=== PATIENT | female | born 1950 | race Caucasian/White ===

== ENCOUNTER → 2016-12-16 | Outpatient (CLI) | payer OTHER | LOC: FIMAGING 07:47 | PROVIDERS: ATTEND Family Medicine | DX: Z12.31 Encounter for screening mammogram for malignant neoplasm of breast (principal) | CPT/HCPCS: G0202 ==

== ENCOUNTER → 2017-01-24 | Outpatient (CLI) | payer OTHER | LOC: FLAB 15:40 | PROVIDERS: ATTEND Family Medicine | DX: Z01.818 Encounter for other preprocedural examination (principal); M25.569 Pain in unspecified knee; E03.9 Hypothyroidism, unspecified; M85.80 Other specified disorders of bone density and structure, unspecified site ==

== ENCOUNTER 2017-01-30 05:56 | Inpatient (IN) | payer OTHER ==
--- NOTE | 2017-01-29 13:05 | GHP ---
[f rep st] PREOP HISTORY AND PHYSICAL DATE OF ADMISSION: 01/30/2017 For surgery date 01/30/2017. HISTORY OF PRESENT ILLNESS: Patient is a 66-year-old female who presents with right knee tricompart ment osteoarthritis. Back in 2011 she had an arthroscopy for meniscal concerns and even at that poi nt was noted to have areas of grade 4 chondromalacia, especially patellofemoral joint. Subsequent i maging shows tricompartment osteoarthritis. She has had 3 rounds of viscosupplementation becoming l ess helpful each round. She has become significantly limited in her activity to walk, any significa nt distance or stand for any period of time. It impacts her activities of daily living, causes her to limp, limits her motion. She has knee pain. She cannot exercise for fitness due to her knee katy n. X-ray shows subchondral irregularity, bone lipping all 3 compartments, decreased joint space, es pecially patellofemoral compartment is involved. A right total knee arthroplasty is planned. PAST MEDICAL HISTORY: Is remarkable for hypothyroid. MEDICATIONS: Levothyroxine 75 mcg p.o. daily, and Lopreeza 0.5 mg p.o. daily. PAST SURGICAL HISTORY: Her surgeries include a right knee arthroscopy and appendectomy. ALLERGIES: She is sensitive to codeine causing nausea. SOCIAL HISTORY: She is a nonsmoker. REVIEW OF SYSTEMS: Positive for hypothyroid. PHYSICAL EXAM: GENERAL: Patient is a well-developed well-nourished female in no apparent distress. HEAD AND NECK: Normocephalic, atraumatic. CHEST: Clear. CARDIOVASCULAR: Regular rate and rhyt hm. ABDOMEN: Soft. NEUROLOGIC: She is alert and oriented x3. EXTREMITIES: Examination of the r ight knee shows a slight flexion contracture. She is bending past 120 degrees. She has a small eff usion. She has joint line tenderness. She has a stable ligamentous exam, and neurovascular exam is intact. IMPRESSION: Right knee tricompartment osteoarthritis. PLAN: Right total knee arthroplasty. Benefits and risks of surgery have been reviewed with the pat ient, she understands that the risks include infection, damage to blood vessel or nerve, failure or loosening of components and need for revision, blood clot in the leg or lungs, bleeding and need for transfusion. We have reviewed the rigorous nature of the rehabilitation. She has signed a consent form, wishes to proceed. /[id number]/MODL
[2017-01-30] MEDS ORDERED: ROPIVACAINE 0.2% 80 MG, EPINEPHrine 0.2 MG, KETOROLAC TROMETHAMINE 30 MG in BAG 0 ML IU ONE (06:03)
[2017-01-30] MEDS ORDERED: ceFAZolin 2 GM/DEXTROSE 100 ML IV ONE (06:03)
[2017-01-30] MEDS ORDERED: DEXAMETHASONE 4 MG/ML VIAL IVP ONE (06:03)
[2017-01-30] MEDS ORDERED: ACETAMINOPHEN 325 MG TAB PO ONE (06:03)
[2017-01-30] MEDS ORDERED: TRANEXAMIC ACID 770 MG in NS 100 ML IV ONE (06:03)
[2017-01-30] MEDS ORDERED: FAMOTIDINE 20 MG TAB PO ONE (06:03)
[2017-01-30] MEDS ORDERED: POVIDONE-IODINE 20 ML in SODIUM CL IRRIG SOLUTION 500 ML IRR ONE (06:03)
[2017-01-30] MEDS ORDERED: LIDOCAINE 1% 2 ML INJ ID PRN (06:19)
[2017-01-30] MEDS ORDERED: LR 1,000 ML IV ONE (06:19)
[2017-01-30] MEDS ORDERED: PROPOFOL 200 MG/20 ML VIAL ONE ×2 (06:33→08:21)
[2017-01-30] MEDS ORDERED: ROPIVACAINE HCL 150 MG/30 ML INJ ONE (06:35)
[2017-01-30] MEDS ORDERED: ceFAZolin 1 GM/5 ML SYR ONE ×2 (06:41→06:55)
[2017-01-30] MEDS ORDERED: MIDAZOLAM 2 MG/2 ML VIAL IVP ONE (07:03)
--- NOTE | 2017-01-30 07:03 | PDANEPAE ---
ANE History of Present Illness 66 year old female w/ PMHx of hypothyroidism and OA presents for right total knee arthroplasty. ANE Past Medical History - Cardiovascular History Hx Hypertension: No Hx Arrhythmias: No Hx Chest Pain: No Hx Coronary Artery / Peripheral Vascular Disease: No Hx CHF / Valvular Disease: No Hx Palpitations: No - Pulmonary History Hx COPD: No Hx Asthma/Reactive Airway Disease: No Hx Recent Upper Respiratory Infection: No Hx Oxygen in Use at Home: No Hx Sleep Apnea: No Sleep Apnea Screening Result - Last Documented: Negative - Neurologic History Hx Cerebrovascular Accident: No Hx Seizures: No Hx Dementia: No - Endocrine History Hx Diabetes: No Hypothyroid: Yes Hyperthyroid: No Obesity: no Endocrine History Comment: Hypothyroid-med. - Renal History Hx Renal Disorders: No - Liver History Hx Hepatic Disorders: No - Neurological & Psychiatric Hx Hx Neurological and Psychiatric Disorders: Yes Neurological / Psychiatric History Comment: Mild depression. - Cancer History Hx Cancer: No - Congenital Disorder History Hx Congenital Disorders: No - GI History Hx Gastrointestinal Disorders: Yes Gastrointestinal History Comment: Gerd-no meds. - Other Health History Other Health History: Mild ringing both ears. Diffuse joint arthritis. ABN post menopausal bleeding. - Chronic Pain History Chronic Pain: Yes (L hip.) - Surgical History Prior Surgeries: R knee scope. Api. D&C in past. ANE Review of Systems - Exercise capacity Exercise capacity: >=4 METS METS (RN): 4 METS ANE Patient History - Allergies Allergies/Adverse Reactions: codeine Allergy (Verified 12/20/16 16:43) Vomiting - Home Medications Home medications: home medication list seen and reviewed Home Medications: Cholecalciferol Vit D3 [Vitamin D3 (*)] 2,000 units PO DAILY 12/13/16 [Last Taken 1 Week Ago] Estradiol/Norethindrone Acet [Lopreeza 0.5 mg-0.1 mg Tablet] 1 each PO DAILY [Last Taken 01/26/17] Herbals/Supplements -Info Only 1 ea PO DAILY 12/13/16 [Last Taken 1 Week Ago] Levothyroxine [Synthroid 75 mcg (*)] 75 mcg PO DAILY06 12/13/16 [Last Taken 01/09 04:30] Multivitamins [Multivitamin (*)] 1 each PO DAILY 12/13/16 [Last Taken 1 Week Ago ] - NPO status NPO Status: no food or drink >8 hours NPO Since - Liquids (Date): 01/29/17 NPO Since - Liquids (Time): 22:00 NPO Since - Solids (Date): 01/29/17 NPO Since - Solids (Time): 21:00 - Anes Hx Anes Hx: post operative nausea (with general anesthesia) - Smoking Hx Smoking Status: Never smoked - Family Anes Hx Family Hx Anesthesia Complications: sister severe nausea. ANE Labs/Vital Signs - Vital Signs Blood Pressure: 147/98 Heart Rate: 84 Respiratory Rate: 20 O2 Sat (%): 93 Height: 170.18 cm Weight: 77.111 kg ANE Physical Exam - Airway Mallampati Score: Class 2 Mouth exam: normal dental/mouth exam - Pulmonary Pulmonary: no respiratory distress - Cardiovascular Cardiovascular: regular rate and rhythym - ASA Status ASA Status: II ANE Anesthesia Plan Anesthesia Plan: MAC, spinal Regional Anesthesia: single shot NB
[2017-01-30] MEDS ORDERED: DEXAMETHASONE 4 MG/ML VIAL ONE (08:08)
[2017-01-30] MEDS ORDERED: MEPERIDINE 25 MG/ML SYR IVP PRN (08:34)
[2017-01-30] MEDS ORDERED: NALOXONE HCL 0.4 MG/ML INJ IVP PRN (08:34)
[2017-01-30] MEDS ORDERED: fentaNYL 100 MCG/2 ML INJ IVP PRN (08:34)
[2017-01-30] MEDS ORDERED: ONDANSETRON 4 MG/2 ML VIAL IVP PRN ×2 (08:34→09:28)
[2017-01-30] MEDS ORDERED: HYDROCODONE/APAP 5/325 TAB PO PRN (08:34)
[2017-01-30] MEDS ORDERED: LR 500 ML IV PRN (08:34)
[2017-01-30] MEDS ORDERED: METOCLOPRAMIDE 10 MG/2 ML VIAL IVP PRN (09:28)
[2017-01-30] MEDS ORDERED: PROMETHAZINE HCL 25 MG/ML INJ IVP PRN (09:28)
[2017-01-30] MEDS ORDERED: TEMAZEPAM 15 MG CAP PO PRN (09:28)
[2017-01-30] MEDS ORDERED: BISACODYL 10 MG SUPP PR PRN (09:28)
[2017-01-30] MEDS ORDERED: LACTULOSE 20 GM/30 ML UDCUP PO PRN (09:28)
[2017-01-30] MEDS ORDERED: PROMETHAZINE HCL 25 MG SUPPR PR PRN (09:28)
[2017-01-30] MEDS ORDERED: DIPHENOXYLATE/ATROPINE LOMOTIL 1 TAB PO PRN (09:28)
[2017-01-30] MEDS ORDERED: PHARMACY PAIN CONSULT 1 EA MISC PRN (09:28)
[2017-01-30] MEDS ORDERED: POLYETHYLENE GLYCOL 3350 17 GM PKT PO PRN (09:28)
[2017-01-30] MEDS ORDERED: MAGNESIUM HYDROXIDE 30 ML UDCUP PO PRN (09:28)
[2017-01-30] MEDS ORDERED: KETOROLAC 30 MG/1 ML SDV IVP PRN (09:28)
[2017-01-30] MEDS ORDERED: diphenhydrAMINE 25 MG CAP PO PRN (09:28)
[2017-01-30] MEDS ORDERED: CYCLOBENZAPRINE 10 MG TAB PO PRN (09:28)
[2017-01-30] MEDS ORDERED: LR 1,000 ML IV SCH (09:30)
--- NOTE | 2017-01-30 10:58 | GOP ---
[f rep st] OPERATIVE REPORT DATE OF OPERATION: 01/30/2017 SURGEON: Aaron Reese MD GROUND CREW[employer] SUPPORT: Eliseo Alvarado SA. ANESTHESIOLOGIST: Malik Epstein MD. PREOPERATIVE DIAGNOSIS: Right knee osteoarthritis. POSTOPERATIVE DIAGNOSIS: Right knee osteoarthritis. PROCEDURE PERFORMED: Right total knee arthroplasty. FINDINGS: SPECIMENS: Include excised bone. ESTIMATED BLOOD LOSS: Minimal. INDICATIONS: The patient is a 66-year-old female who presents with right knee tricompartment osteoa rthritis. A right total knee arthroplasty is planned. DESCRIPTION OF PROCEDURE: The patient was taken to the operating room and in a seated position, Dr. Epstein provided a spinal anesthetic. She was then placed supine, received IV sedation, 2 g of IV A ncef. Tourniquet was placed high on the right thigh. I made sure the right leg was in neutral posi tion. She has a slight flexion contracture. The right leg was prepped and draped in the usual fas ion with chlorhexidine. The limb was elevated, exsanguinated, and the tourniquet inflated to 275 mm Hg. I made a longitudinal incision in the midline, dissected through subcutaneous tissue. I used a medial parapatellar arthrotomy. The patella was inverted and I removed osteophytes. I measured its thickness at 20 mm. I removed 9 mm of cartilage and bone, and sized the patella at a size 35. I d rilled peg holes. The trial component and the [place] patella restored the 20 mm of thickness and I removed rimming osteophytes. The knee was then flexed and I removed osteophytes from the edges of t he femoral condyles. This is a very arthritic knee. I drilled a charter pilot hole in the distal femur, pl aced an intramedullary device to make a distal 5 degree valgus cut. I used an extra 2 mm of resecti on to accommodate her slight flexion contracture. I sized the distal femur to a size 6. I backed d own to a size 5 and advanced the cutting block anteriorly. I made anterior, posterior and chamfer c uts, as well as notch cuts. The trial component was a very good fit. I then used an extramedullary device on the tibia. I dialed in the rotation, as well as posterior slope, used a stylus to measur e depth. I made a tibial cut, sized the tibial surface at a size 4. I adjusted the rotation, marked this and finished the tibial prep. All components were removed and I jet lavaged all the bone surf aces to clean them. I used methylmethacrylate on the tibia and the tibial component size 4 was lan ered into place, cement on the femur. Then, the femoral component size 5 and placed a trial liner, extended the knee. The patellar component was held with a clamp until the cement had hardened. I allyson sam did trial reductions. A size 9 liner allowed full extension, excellent roll back in flexion, ap propriate ligamentous stability. The 9 mm thick crosslink poly liner with a post was snapped into t tibial tray. I infiltrated around the knee with a joint cocktail of Toradol, Marcaine. The arth rotomy was closed with interrupted ildeas-nt-cbvss sutures of 0 Mersilene. Subcutaneous tissue was with 2-0 Monocryl. The skin was closed with yoli. The wound was dressed with Betadine-soaked Ad aptic, 4 x 4, sterile Webril, and a long-leg Fazal stocking. There were no complications. DRAINS: There were no drains. COUNTS: All counts were correct. DISPOSITION: The patient was taken in stable condition to recovery. My surgical specialist, Eliseo melendrez, was a medical necessity to accomplish this total knee replacement. SUMMARY OF COMPONENTS: This is a [employer] knee all components cemented. The femur is Oxinium. The poly is Crosslink. The femur is size 5, the tibia size 4, the patella 35 and the cr oss-linked poly liner 9 mm thick. /[id number]/MODL
--- NOTE | 2017-01-30 11:00 | POSTANESTH ---
Post Anesthetic Evaluation Cardiovascular Status: Normal, Stable Respiratory Status: Normal, Stable Level of Consciousness/Mental Status: Can Participate in Eval Pain Control: Adequate, Prn Tx Ordered Nausea/Vomiting Control: Adequate, Prn Tx Ordered Complications Possibly Related to Anesthesia: None Noted
[2017-01-30] MEDS: ACETAMINOPHEN 325 MG TAB PO SCH ×3 (12:11→22:31)
[2017-01-30] MEDS: ceFAZolin 2 GM/DEXTROSE 100 ML IV SCH ×2 (14:25→21:33)
[2017-01-30] MEDS: ASPIRIN 325 MG TAB PO SCH (21:16)
[2017-01-30] MEDS: FAMOTIDINE 20 MG TAB PO SCH (21:16)
[2017-01-30] MEDS: SENNOSIDES/DOCUSATE SODIUM TAB PO SCH (21:17)
[2017-01-30] MEDS: oxyCODONE IR 5 MG TAB PO PRN ×2 (21:17→22:29)
[2017-01-31 05:42] LABS: HEMATOCRIT 36.2 % (38.0-47.0); HEMOGLOBIN 12.1 g/dL (12.6-16.3)
[2017-01-31] MEDS: ACETAMINOPHEN 325 MG TAB PO SCH ×2 (05:59→12:08)
[2017-01-31] MEDS ORDERED: LEVOTHYROXINE 75 MCG TAB PO SCH (06:00)
[2017-01-31 08:03] VITALS: O2SAT 95
[2017-01-31] MEDS ORDERED: NORETHINDRONE PO SCH (09:00)
[2017-01-31] MEDS ORDERED: CHOLECALCIFEROL VIT D3 2,000 UNITS TAB/CAP PO SCH (09:00)
[2017-01-31] MEDS ORDERED: CHOLECALCIFEROL VIT D3 1,000 UNITS TAB PO SCH (09:00)
[2017-01-31] MEDS ORDERED: ESTRADIOL PO SCH (09:00)
[2017-01-31] MEDS ORDERED: MULTIVITAMINS 1 EACH TAB PO SCH (09:00)
[2017-01-31] MEDS: ASPIRIN 325 MG TAB PO SCH (09:05)
[2017-01-31] MEDS: FAMOTIDINE 20 MG TAB PO SCH (09:07)
[2017-01-31] MEDS: SENNOSIDES/DOCUSATE SODIUM TAB PO SCH (09:07)
--- NOTE | 2017-01-31 11:35 | SOAPPROG ---
SOAP Progress Note Assessment/Plan: Assessment: 01/31/17 POD#1 R TKA, pain controlled, Hct 36, xray fine Plan: 01/31/17 11:33 D/C home, asa oxy, home PT Objective: Vital Signs Temp Pulse Resp BP Pulse Ox 36.3 C 76 15 109/74 95 01/31/17 08:00 01/31/17 08:00 01/31/17 08:00 01/31/17 08:00 01/31/17 08:00 Laboratory Results 01/31/17 05:29 01/30/17 01/31/17 02/01/17 05:59 05:59 05:59 Intake Total 1999 Output Total 25 Balance 1975 ICD10 Worksheet Patient Problems: Problems Problem Status Onset Osteoarthritis of right knee Acute - ICD10 Problem Qualifiers (1) Osteoarthritis of right knee Qualifiers: Osteoarthritis type: O
--- NOTE | 2017-01-31 11:41 | PDIAF ---
- Diagnosis Code Status: Full Code - Medication Management Discharge Medications: Medications to Continue on Transfer Cholecalciferol Vit D3 [Vitamin D3 (*)] 2,000 units PO DAILY 12/13/16 [Last Taken 1 Week Ago] Estradiol/Norethindrone Acet [Lopreeza 0.5 mg-0.1 mg Tablet] 1 each PO DAILY [Last Taken 01/26/17] Herbals/Supplements -Info Only 1 ea PO DAILY 12/13/16 [Last Taken 1 Week Ago] Levothyroxine [Synthroid 75 mcg (*)] 75 mcg PO DAILY06 12/13/16 [Last Taken 01/09 04:30] Multivitamins [Multivitamin (*)] 1 each PO DAILY 12/13/16 [Last Taken 1 Week Ago ] Aspirin [Aspirin 325 mg (*)] 325 mg PO DAILY #0 tab 01/31/17 [Last Taken Unknown ] oxyCODONE IR [Oxycodone Ir (*)] 5 - 10 mg PO Q3HRS PRN #0 tab 01/31/17 [Last Taken Unknown] Discharge Medications: Refer to the Discharge Home Medication list for PRN reason. - Orders Services needed: Physical Therapy Diet Recommendation: no restrictions on diet Diet Texture: Regular Texture Diet Fazal Stockings Discontinue Date: 2 weeks Wound Care Instructions: keep incision covered, clean,dry Sutures/[place] Site: r knee, yoli out at my office 2 weeks Activity/Weight Bearing Restrictions: WBAT, full ROM - Follow Up Care Current Providers and Referrals: Yamilka De Jesus MD [Primary Care Provider] -
[2017-01-31 11:53] VITALS: BP 103/66; PULSE 70; RESP 18; TEMP 98.1
== END 2017-01-31 14:25 | disposition home health service (06) | DRG 470 ==
LOC: F3N 05:56
PROVIDERS: ADMIT Orthopaedic Surgery; ATTEND Orthopaedic Surgery
PROC: 0SRC0J9 Replacement of Right Knee Joint with Synthetic Substitute, Cemented, Open Approach (ICD-10-PCS; principal; 2017-01-30 07:15)
DX: M17.11 Unilateral primary osteoarthritis, right knee (principal); E03.9 Hypothyroidism, unspecified
CPT/HCPCS: 97110-GP; 97116-GP; 97161-GP; 97165-GO; 97530-GP; C1713; J0171; J0690; J1100; J1885; J2250; J2704; J2795

== ENCOUNTER → 2017-07-31 | Outpatient (CLI) | payer OTHER ==
[~2017-07-31] MED LIST: IOPAMIDOL (ISOVUE-300) 100 ML BTL ONE
== END ==
LOC: FIMAGING 15:32
PROVIDERS: ATTEND Physician Assistant Medical
DX: R30.0 Dysuria (principal); R31.0 Gross hematuria; K59.00 Constipation, unspecified; K57.30 Diverticulosis of large intestine without perforation or abscess without bleeding
CPT/HCPCS: Q9967

== ENCOUNTER 2018-01-08 10:57 | Inpatient (IN) | payer OTHER ==
--- NOTE | 2018-01-07 15:21 | GHP ---
[f rep st] PREOP HISTORY AND PHYSICAL DATE OF ADMISSION: 01/08/2018 HISTORY OF PRESENT ILLNESS: The patient is a 67-year-old female who presents with left hip pain. Sh el has limitation of her motion, especially rotation and she is having groin pain. Her hip pain influ ences range of motion, she has gait and she is limping. She has undergone a right total k nee successfully. X-rays of the left hip shows significant decreased joint space, degenerative lippi ng, and subchondral sclerosis. She has tried appropriate medications, as well as exercises and tried to maintain her motion and core strength, is having significant limitation of her activities, and th is impacts her quality of life, she elected to undergo a left total hip arthroplasty. PAST MEDICAL HISTORY: She is hypothyroid. She uses levothyroxine 75 mcg. She has had a right knee scope and a right total knee arthroplasty, and appendectomy because of nausea. SOCIAL HISTORY: She is a nonsmoker. REVIEW OF SYSTEMS: Positive for hypothyroid. Negative for cardiopulmonary disease. PHYSICAL EXAMINATION: GENERAL: She is a well-developed, well-nourished female in no apparent distre ss. HEAD AND NECK: Normocephalic, atraumatic. CHEST: Clear. CARDIOVASCULAR: Regular rate and rh ythm. ABDOMEN: Soft. NEUROLOGIC: She is alert and oriented x3. EXTREMITIES: Examination of the left hip shows significant limitation of internal and external rotation. She tolerates only 90 degre es of flexion, has near full extension, very limited abduction. IMPRESSION: Left hip osteoarthritis. PLAN: Left total hip arthroplasty. Benefits and risks of surgery have been reviewed, including risk of infection; damage to blood, vessel, and nerve; failure or loosening of components and need for re vision; blood clot in the leg or lungs; possible hip instability, such as dislocation or leg length d iscrepancy. She has signed a consent form and wishes to proceed. /[id number]/MODL
[~2018-01-08 10:57] MED LIST changes: -IOPAMIDOL (ISOVUE-300) 100 ML BTL ONE; +POVIDONE-IODINE 20 ML in SODIUM CL IRRIG SOLUTION 500 ML IRR ONE; +ROPIVACAINE 0.2% 80 MG, EPINEPHrine 0.2 MG, KETOROLAC TROMETHAMINE 30 MG in SYRINGE 0 ML IU ONE; +TRANEXAMIC ACID 1,000 MG in NS 100 ML IV ONE
[2018-01-08] MEDS ORDERED: ACETAMINOPHEN 325 MG TAB PO ONE (11:09)
[2018-01-08] MEDS ORDERED: ONDANSETRON 4 MG/2 ML VIAL IVP ONE (11:09)
[2018-01-08] MEDS ORDERED: LR 1,000 ML IV ONE (11:09)
[2018-01-08] MEDS ORDERED: DEXAMETHASONE 4 MG/ML VIAL IVP ONE (11:09)
[2018-01-08] MEDS ORDERED: ceFAZolin 2 GM/DEXTROSE 100 ML IV ONE (11:09)
[2018-01-08] MEDS ORDERED: FAMOTIDINE 20 MG TAB PO ONE (11:09)
[2018-01-08] MEDS ORDERED: LIDOCAINE 1% 2 ML INJ ID PRN (11:09)
[2018-01-08] MEDS ORDERED: GABAPENTIN 300 MG CAP PO ONE (11:09)
[2018-01-08] MEDS ORDERED: ceFAZolin 1 GM/5 ML SYR ONE ×2 (12:37→14:54)
--- NOTE | 2018-01-08 13:33 | PDANEPAE ---
ANE History of Present Illness let hip[ oa ANE Past Medical History - Cardiovascular History Hx Hypertension: No Hx Arrhythmias: No Hx Chest Pain: No Hx Coronary Artery / Peripheral Vascular Disease: No Hx CHF / Valvular Disease: No Hx Palpitations: No - Pulmonary History Hx COPD: No Hx Asthma/Reactive Airway Disease: No Hx Recent Upper Respiratory Infection: No Hx Oxygen in Use at Home: No Hx Sleep Apnea: No Sleep Apnea Screening Result - Last Documented: Negative - Neurologic History Hx Cerebrovascular Accident: No Hx Seizures: No Hx Dementia: No - Endocrine History Hx Diabetes: No Hypothyroid: Yes Hyperthyroid: No Endocrine History Comment: Hypothyroid-med. - Renal History Hx Renal Disorders: No - Liver History Hx Hepatic Disorders: No - Neurological & Psychiatric Hx Hx Neurological and Psychiatric Disorders: No Neurological / Psychiatric History Comment: Mild depression,no meds - Cancer History Hx Cancer: No - Congenital Disorder History Hx Congenital Disorders: No - GI History Hx Gastrointestinal Disorders: Yes Gastrointestinal History Comment: Gerd-no meds. - Other Health History Other Health History: Mild ringing both ears. Diffuse joint arthritis. ABN post menopausal bleeding. - Chronic Pain History Chronic Pain: No (lower back pain) - Surgical History Prior Surgeries: R knee scope. Api. D&C in past. R TKA ANE Review of Systems Review of systems is: negative Review of Systems: - Exercise capacity Exercise capacity: >=4 METS METS (RN): 4 METS ANE Patient History - Allergies Allergies/Adverse Reactions: codeine Allergy (Verified 12/25/17 15:57) Vomiting - Home Medications Home Medications: Cholecalciferol Vit D3 [Vitamin D3 (*)] 2,000 units PO DAILY 12/13/16 [Last Taken 1 Week Ago ~01/01/18] Herbals/Supplements -Info Only 1 ea PO DAILY 12/13/16 [Last Taken 1 Week Ago ~] Levothyroxine [Synthroid 75 mcg (*)] 75 mcg PO DAILY06 12/13/16 [Last Taken 1 Day Ago ~01/07/18] Multivitamins [Multivitamin (*)] 1 each PO DAILY 12/13/16 [Last Taken 1 Week Ago ~01/01/18] - NPO status NPO Status: no food or drink >8 hours NPO Since - Liquids (Date): 01/08/18 NPO Since - Liquids (Time): 05:00 NPO Since - Solids (Date): 01/07/18 NPO Since - Solids (Time): 19:00 - Anes Hx Anes Hx: no prior problems Hx Anesthesia Complications (with details): 2 months urinary retention following sab withtka - Smoking Hx Smoking Status: Never smoked - Alcohol Use Alcohol Use: Occasionally - Family Anes Hx Family Anes Hx: none Family Hx Anesthesia Complications: sister severe nausea. ANE Labs/Vital Signs - Vital Signs Blood Pressure: 132/85 Heart Rate: 74 Respiratory Rate: 18 O2 Sat (%): 95 Height: 170.18 cm Weight: 81.647 kg ANE Physical Exam - Airway Neck exam: FROM Mallampati Score: Class 2 Mouth exam: normal dental/mouth exam - Pulmonary Pulmonary: no respiratory distress - Cardiovascular Cardiovascular: regular rate and rhythym - ASA Status ASA Status: II ANE Anesthesia Plan Anesthesia Plan: general endotracheal anesthesia
[2018-01-08] MEDS ORDERED: MIDAZOLAM 2 MG/2 ML VIAL IVP ONE (13:34)
[2018-01-08] MEDS ORDERED: ROCURONIUM 50 MG/5 ML VIAL ONE (14:02)
[2018-01-08] MEDS ORDERED: LIDOCAINE 2% 100 MG/5 ML SYR ONE (14:02)
[2018-01-08] MEDS ORDERED: DEXAMETHASONE 4 MG/ML VIAL ONE (14:03)
[2018-01-08] MEDS ORDERED: PROPOFOL 200 MG/20 ML VIAL ONE (14:03)
[2018-01-08] MEDS ORDERED: fentaNYL 100 MCG/2 ML INJ ONE ×4 (14:03→16:46)
[2018-01-08] MEDS ORDERED: ONDANSETRON 4 MG/2 ML VIAL ONE (14:03)
[2018-01-08] MEDS ORDERED: SUGAMMADEX SODIUM 200 MG/2 ML VIAL IVP ONE (16:18)
[2018-01-08] MEDS ORDERED: ONDANSETRON 4 MG/2 ML VIAL IVP PRN ×2 (16:38→16:41)
[2018-01-08] MEDS ORDERED: PROMETHAZINE HCL 25 MG/ML INJ IVP PRN ×2 (16:38→16:41)
[2018-01-08] MEDS ORDERED: CYCLOBENZAPRINE 10 MG TAB PO PRN (16:38)
[2018-01-08] MEDS ORDERED: DIPHENOXYLATE/ATROPINE LOMOTIL 1 TAB PO PRN (16:38)
[2018-01-08] MEDS ORDERED: PROMETHAZINE HCL 25 MG SUPPR PR PRN (16:38)
[2018-01-08] MEDS ORDERED: MAGNESIUM HYDROXIDE 30 ML UDCUP PO PRN (16:38)
[2018-01-08] MEDS ORDERED: METOCLOPRAMIDE 10 MG/2 ML VIAL IVP PRN (16:38)
[2018-01-08] MEDS ORDERED: ONDANSETRON DISINTEGRATING 4 MG TAB PO PRN (16:38)
[2018-01-08] MEDS ORDERED: NS 500 ML IV PRN (16:38)
[2018-01-08] MEDS ORDERED: POLYETHYLENE GLYCOL 3350 17 GM PKT PO PRN (16:38)
[2018-01-08] MEDS ORDERED: LACTULOSE 20 GM/30 ML UDCUP PO PRN (16:38)
[2018-01-08] MEDS ORDERED: BISACODYL 10 MG SUPP PR PRN (16:38)
[2018-01-08] MEDS ORDERED: TEMAZEPAM 15 MG CAP PO PRN (16:38)
[2018-01-08] MEDS ORDERED: diphenhydrAMINE 25 MG CAP PO PRN (16:38)
[2018-01-08] MEDS ORDERED: oxyCODONE IR 5 MG TAB PO PRN (16:41)
[2018-01-08] MEDS ORDERED: ALBUTEROL 3 ML DEYVIAL IH PRN (16:41)
[2018-01-08] MEDS ORDERED: ACETAMINOPHEN 500 MG TAB PO PRN (16:41)
[2018-01-08] MEDS ORDERED: NALOXONE HCL 0.4 MG/ML INJ IVP PRN (16:41)
--- NOTE | 2018-01-08 16:42 | POSTANESTH ---
Post Anesthetic Evaluation Cardiovascular Status: Normal, Stable Respiratory Status: Normal, Stable Level of Consciousness/Mental Status: Can Participate in Eval, Mildly Sleepy, Arousable Pain Control: Adequate, Prn Tx Ordered Nausea/Vomiting Control: Adequate, Prn Tx Ordered Complications Possibly Related to Anesthesia: None Noted
[2018-01-08] MEDS: fentaNYL 100 MCG/2 ML INJ IVP PRN ×2 (16:53→17:09)
[2018-01-08] MEDS ORDERED: LR 1,000 ML IV SCH (17:00)
--- NOTE | 2018-01-08 18:27 | GOP ---
[f rep st] OPERATIVE REPORT DATE OF OPERATION: 01/08/2018 SURGEON: Aaron Reese MD FINANCIAL ANALYST ACCOUNTANT: Eliseo Alvarado SA. ANESTHESIOLOGIST: Dr. Branham. PREOPERATIVE DIAGNOSIS: Left hip osteoarthritis. POSTOPERATIVE DIAGNOSIS: Left hip osteoarthritis. PROCEDURE PERFORMED: Left total hip arthroplasty. FINDINGS: SPECIMENS: Include excised bone. ESTIMATED BLOOD LOSS: About 75 cc. INDICATIONS: The patient is a 67-year-old female who presents with history, exam, and x-rays consist ent with severe left hip osteoarthritis. DESCRIPTION OF PROCEDURE: The patient was taken to the operating room, placed supine on the operatin g table, placed under general anesthetic with endotracheal intubation. She received 2 g of IV Ancef, as well as her first dose of tranexamic acid, another later in the case. She was then rolled right side down on a pegboard with an axillary roll. All bony prominences were well padded, and the left h ip and leg were prepped and draped free in the usual fashion. Standard posterior approach was used to the hip with a gently curving incision just posterior to the greater trochanter. Dissection was carried down to subcutaneous tissue. I incised through the IT ba nd, through the trochanteric bursa into the gluteal fascia. This allowed me to expose the posterior structures of the hip. The sciatic nerve was palpable and protected throughout. With gentle exposur e of the posterior structures, I released the piriformis and tagged it with a FiberWire. I released more distal external rotators, tagged them as well with another FiberWire. I placed a pin above the acetabulum and a drill point in the trochanter and measured a predislocation leg length. I then open ed the capsule and placed 2 FiberWire tags in the edge of the capsule. The hip was then gently dislocated. I made a femoral neck cut using a neck cutting guide. I then ex posed the acetabulum with anterior and posterior retractors carefully placed against the bone of the acetabulum. I excised degenerative labrum. I started reaming at about a 46 and reamed up to a 49 do wn to the true floor. I press-fit a size 50 Biomet Regenerex cup with limited superior hole screw ho les in a 40 degree opening angle and 20-25 degrees of anteversion. This was a good sound fit that di d not require additional screws. I placed a trial liner. I addressed the femur next. I opened the canal with a box chisel and awl. I used a Taperloc complet e broaching system starting at about a 4, and I broached up to the size 14 and had good rotational st ability and did trial reductions. I could establish my preoperative plan of slight leg lengthening. I then returned to the acetabulum and placed a +3 Max-ROM acetabular liner. It was snapped in the R ing Lock retention system. I placed a size 14 standard offset taper lock complete femoral stem with excellent stability. I again repeated my trial reductions. I chose a +0 neck, ceramic head 32 mm in diameter and this was placed over the trunnion of the stem and hip reduced. It had excellent stabil ity. I lengthened her about 3-4 mm. Copious antibiotic irrigation was used, including a Betadine ri nse. I drilled 2 holes in the posterior aspect of the greater trochanter and mattressed the capsule and the external rotator sutures through it and were tied first at the capsule, then at the rotators. This provided a nice posterior reconstruction. I closed the fascia of the gluteus into the IT band with interrupted teodoc-ed-tavis sutures of 0 Shannan silene, subcutaneous tissue was closed in layers with 2-0 Monocryl, and the skin was closed with a ru nning subcuticular absorbable Quill suture. The wound was further closed with glue, a Telfa, and a big Tegaderm. COMPLICATIONS: There were no complications. DRAINS: No drains. COUNT: All counts were correct, DISPOSITION: The patient was taken in stable condition to recovery. SUMMARY OF COMPONENTS: This is a Biomet total hip system all press-fit. The femoral component is a Taperloc complete standard offset 14 mm stem. The acetabulum is a 50 mm Regenerex shell. The liner is an E1 Ring Lock acetabular liner, the head is ceramic 32 mm diameter. The neck is +0. My director medical surgical was a medical necessity for this total hip replacement. /[id number]/MODL
[2018-01-08] MEDS: ACETAMINOPHEN 325 MG TAB PO SCH (18:57)
[2018-01-08] MEDS: SENNOSIDES/DOCUSATE SODIUM TAB PO SCH (20:54)
[2018-01-08] MEDS: oxyCODONE IR 5 MG TAB PO PRN (20:54)
[2018-01-08] MEDS: FAMOTIDINE 20 MG TAB PO SCH (20:54)
[2018-01-08] MEDS: ASPIRIN 81 MG CHEWABLE TAB PO SCH (20:55)
[2018-01-08] MEDS: ceFAZolin 2 GM/DEXTROSE 100 ML IV SCH (22:08)
[2018-01-09] MEDS: ACETAMINOPHEN 325 MG TAB PO SCH ×3 (00:48→11:48)
[2018-01-09] MEDS: ceFAZolin 2 GM/DEXTROSE 100 ML IV SCH (05:58)
[2018-01-09] MEDS ORDERED: LEVOTHYROXINE 75 MCG TAB PO SCH (06:00)
[2018-01-09] MEDS: oxyCODONE IR 5 MG TAB PO PRN (06:06)
[2018-01-09 07:47] VITALS: BP 105/57
--- NOTE | 2018-01-09 08:21 | SOAPPROG ---
SOAP Progress Note Assessment/Plan: Assessment: 01/09/17, postoperative day 1, left total hip arthroplasty. Dressing is clean and dry, pain is controlled. X-rays look good Plan: 01/09/18 08:18 mobilize with physical therapy and home, with home PT than out patient PT, aspirin 81 mg twice a day, Celebrex,oxy Objective: Vital Signs Temp Pulse Resp BP Pulse Ox 37.0 C 69 14 105/57 L 93 01/09/18 07:46 01/09/18 07:46 01/09/18 07:46 01/09/18 07:46 01/09/18 07:46 01/08/18 01/09/18 01/10/18 05:59 05:59 05:59 Intake Total 2400 Output Total 1000 Balance 1400 ICD10 Worksheet Patient Problems: Problems Problem Status Onset Osteoarthritis of right knee Acute
--- NOTE | 2018-01-09 08:31 | PDIAF ---
- Diagnosis Diagnosis: left hip osteoarthritis Code Status: Full Code - Medication Management Discharge Medications: Medications to Continue on Transfer Cholecalciferol Vit D3 [Vitamin D3 (*)] 2,000 units PO DAILY 12/13/16 [Last Taken 1 Week Ago ~01/01/18] Herbals/Supplements -Info Only 1 ea PO DAILY 12/13/16 [Last Taken 1 Week Ago ~] Levothyroxine [Synthroid 75 mcg (*)] 75 mcg PO DAILY06 12/13/16 [Last Taken 1 Day Ago ~01/07/18] Multivitamins [Multivitamin (*)] 1 each PO DAILY 12/13/16 [Last Taken 1 Week Ago ~01/01/18] Acetaminophen [Tylenol 325mg (*)] 650 mg PO Q6HRS tab 01/09/18 [Last Taken Unknown] Aspirin [Aspirin 81mg (*)] 81 mg PO BID tab.chew 01/09/18 [Last Taken Unknown] celeCOXIB [Celebrex (*)] 200 mg PO DAILY #30 cap 01/09/18 [Last Taken Unknown] oxyCODONE IR [Oxycodone Ir (*)] 5 - 10 mg PO Q3HRS PRN #20 tab 01/09/18 [Last Taken Unknown] Discharge Medications: Refer to the Discharge Home Medication list for PRN reason. - Orders Services needed: Physical Therapy Diet Recommendation: no restrictions on diet Diet Texture: Regular Texture Diet Fazal Stockings Discontinue Date: 2 wks Wound Care Instructions: May leave dressing on Activity/Weight Bearing Restrictions: weightbearing as tolerated, hip precautions for post approach - Follow Up Care Current Providers and Referrals: Yamilka De Jesus MD [Primary Care Provider] - Aaron Reese MD [Medical Doctor] -
[2018-01-09] MEDS: ASPIRIN 81 MG CHEWABLE TAB PO SCH (08:48)
[2018-01-09] MEDS: SENNOSIDES/DOCUSATE SODIUM TAB PO SCH (08:49)
[2018-01-09] MEDS: FAMOTIDINE 20 MG TAB PO SCH (08:49)
[2018-01-09] MEDS ORDERED: CHOLECALCIFEROL VIT D3 1,000 UNITS TAB PO SCH (09:00)
[2018-01-09] MEDS ORDERED: MULTIVITAMINS 1 EACH TAB PO SCH (09:00)
--- NOTE | 2018-01-09 09:21 | PDMN ---
Medical Necessity Medical [place] [facility] [place] - L DRU
--- NOTE | 2018-01-09 10:14 | ASMTLACE ---
BHARAT[facility] Length of stay for Answers: 2 days current admission Acuity / Level of Answers: No Care: Did the patient have an inpatient admission? Comorbidities - select Answers: Other Notes: Hypothyroid; GERD all that apply # of Emergency department Answers: 0 visits in the last 6 months Social determinants Answers: Mental health diagnosis (anxiety, depression, pers onality disorders, etc.) Score: 6 Date Signed: 01/09/2018 10:13 AM Electronically Signed By:SID Deal
--- NOTE | 2018-01-09 13:34 | ASMTCMCOM ---
CM Note CM Note Notes: Pt medically stable for d/c with [facility] PT. Orders to be obtained in [facility]. Date Signed: 01/09/2018 01:33 PM Electronically Signed By:SID Deal
--- NOTE | 2018-01-09 13:34 | ASDISCHSUM ---
Discharge Information Plan Status:Home with Home Health Medically Cleared to Leave: Discharge Date:01/09/2018 12:36 PM D/C Disposition:Home Health Service ADT D/C Disposition:Home, Routine, Self-Care Projected Discharge Date:01/09/2018 11:00 AM Transportation at D/C:Family Discharge Delay Reason: Follow-Up Date:01/09/2018 11:00 AM Discharge Slot: Final Diagnosis: Placement Information Referral Type:*Home Health Care Services Referral ID:[id number] Provider Name:[facility] Address 1:[address] [place] [address] Address 2: City:[place] Selection Factors: State:[place] Patient Contact Information Contact Name:ISIDORO Relationship: Address:[address] City:[place] Alternate Phone: State/Zip Code:[place] [address] Email: Financial Information Financial Class:[facility] Primary Plan Desc:[facility] Primary Plan Number:[id number] Secondary Plan Desc:MEDICARE INPATIENT Secondary Plan Number:[id number] Assessment Information LACE LACE Length of stay for Answers: 2 days current admission Acuity / Level of Answers: No Care: Did the patient have an inpatient admission? Comorbidities - select Answers: Other Notes: Hypothyroid; GERD all that apply # of Emergency department Answers: 0 visits in the last 6 months Social determinants Answers: Mental health diagnosis (anxiety, depression, pers onality disorders, etc.) Score: 6 Date Signed: 01/09/2018 10:13 AM Electronically Signed By:SID Deal [facility] CM Progress Note CM Note CM Note Notes: Pt medically stable for d/c with [facility] PT. Orders to be obtained in [facility]. Date Signed: 01/09/2018 01:33 PM Electronically Signed By:SID Deal Intervention Information
--- NOTE | 2018-01-28 18:25 | GDS ---
[f rep st] DISCHARGE SUMMARY HISTORY: The patient was admitted for operative care of her severely arthritic left hip. HOSPITAL COURSE: On 01/08/2017, the patient underwent a left total hip arthroplasty without complica tion. This is detailed in the operative note. She received preoperative antibiotics. Postoperative ly, she was placed on the total hip clinical pathway to include perioperative antibiotics, DVT prophy laxis, and PT and OT consultation. On 01/09/2018, her dressing was clean and dry. Her pain was cont rolled. Her x-rays showed the components were in good position. She was mobilized with physical the rapy. She will have home PT, then outpatient PT. MEDICATIONS: Include aspirin 81 mg twice a day, Celebrex, and oxycodone. DISCHARGE DIAGNOSIS: Left hip osteoarthritis. PROCEDURE: Left total hip arthroplasty. COMPLICATIONS: None. DISPOSITION: Home. FOLLOWUP: Dr. Reese in 2 weeks. MEDICATIONS ON DISCHARGE: Detailed in the reconciliation; they will include: 1. Aspirin 81 mg p.o. twice daily. 2. Celebrex 200 mg p.o. daily. 3. Oxycodone on a p.r.n. basis. DISCHARGE INSTRUCTIONS: She may leave the dressing on for a long is clean and dry. Hip precautions were reviewed. She may weightbear as tolerated with hip precautions. Regular diet. CONDITION ON DISCHARGE: Improved. /[id number]/MODL
== END 2018-01-09 12:36 | disposition home health service (06) | DRG 470 ==
LOC: F3N 10:57 → OBSVTOIN 10:57 → F3N 18:01
PROVIDERS: ADMIT Orthopaedic Surgery; ATTEND Orthopaedic Surgery
PROC: 0SRB0JZ Replacement of Left Hip Joint with Synthetic Substitute, Open Approach (ICD-10-PCS; principal; 2018-01-08 14:00)
DX: M16.12 Unilateral primary osteoarthritis, left hip (principal); E03.9 Hypothyroidism, unspecified; K21.9 Gastro-esophageal reflux disease without esophagitis; Z96.651 Presence of right artificial knee joint
CPT/HCPCS: 97116-GP; 97161-GP; 97165-GO; G8978-GP-CJ; G8979-GP-CJ; G8980-GP-CJ; G8987-GO-CI; G8988-GO-CI; G8989-GO-CI; J0171; J0690; J1100; J1885; J2001; J2250; J2405; J2704; J2795; J3010

== ENCOUNTER → 2018-03-12 | Outpatient (CLI) | payer OTHER | LOC: FIMAGING 10:53 | PROVIDERS: ATTEND Family Medicine | DX: Z12.31 Encounter for screening mammogram for malignant neoplasm of breast (principal) ==